=== PATIENT | female | born 1965 | race Caucasian/White ===

== ENCOUNTER 2018-11-24 05:45 | Day surgery (SDC) | payer OTHER ==
[2018-11-24] MEDS ORDERED: FENTAnyl 50 MCG/ML VIAL (08:29)
[2018-11-24] MEDS ORDERED: MIDAZOLAM 1 MG/ML 2 ML INJ (08:29)
== END 2018-11-24 10:22 | disposition home or self-care (01) ==
LOC: GIL 05:45
DX: K44.9 Diaphragmatic hernia without obstruction or gangrene (principal); K21.9 Gastro-esophageal reflux disease without esophagitis; K29.50 Unspecified chronic gastritis without bleeding
CPT/HCPCS: 43239; 84703; 88305; 88312